=== PATIENT | male | born 1985 | race American Indian/Alaskan Native ===

== ENCOUNTER 2017-09-30 09:00 | Emergency (ER) | payer OTHER ==
[2017-09-30 09:14] VITALS: BP 118/73
[2017-09-30] MEDS ORDERED: ASPIRIN PO ONE (09:14)
[2017-09-30 09:39] LABS: Basophils % (Auto) 0.3 % (0.0-1.8); Eosinophils % (Auto) 0.3 % (0.0-4.3); Hematocrit 41.5 % (35.5-45.6); Hemoglobin 13.8 gm/dl (11.8-15.2); Lymphocytes # (Auto) 1.2 K/mm3 (1.2-5.4); Lymphocytes % (Auto) 34.8 % (13.4-35.0); Mean Corpuscular HGB Conc 33 % (32-34); Mean Corpuscular Hemoglobin 27 pg (28-32); Mean Corpuscular Volume 81 fl (84-94); Monocytes # (Auto) 0.4 K/mm3 (0.0-0.8); Monocytes % (Auto) 12.6 % (0.0-7.3); Platelet Count 145 K/mm3 (140-440); Red Blood Count 5.13 M/mm3 (3.65-5.03); Red Cell Distribution Width 12.8 % (13.2-15.2)
[2017-09-30 10:01] LABS: BUN/Creatinine Ratio 20; Blood Urea Nitrogen 12 mg/dL (9-20); Calcium 8.8 mg/dL (8.4-10.2); Hemolysis Index 15
--- NOTE | 2017-09-30 11:56 | Emergency Department Report ---
ED Chest Pain HPI - General Chief Complaint: Chest Pain Stated Complaint: CP/ABD PAIN Time Seen by Provider: 09/30/17 11:43 Source: patient Mode of arrival: Ambulatory Limitations: No Limitations - History of Present Illness Initial Comments: 32-year-old male with no significant past medical history presented to the hospital complaining of intermittent upper mid chest pain for the last 2 weeks. Pain is throbbing when it occurs. Pain-free at this time. No aggravating or alleviating factors. Denies shortness of breath, nausea, vomiting, diaphoresis , fever, calf tenderness, cough, or recent travel. As per triage patient wanted to be tested for STD but he denies that complaint currently during my examination. Patient complains of some mild intermittent mid abdominal pain that is currently present. He denies smoking/tobacco use or cocaine abuse. - Related Data Previous Rx's Medication Instructions Recorded Last Taken Type RX: Ibuprofen [Motrin 600 MG tab] 600 mg PO Q8H PRN #30 tablet 09/30/17 Unknown Rx Allergies Allergy/AdvReac Type Severity Reaction Status Date / Time No Known Allergies Allergy Verified 09/30/17 09:10 Heart Score - HEART Score History: Slightly suspicious EKG: Normal Age: < 45 Risk factors: No known risk factors Troponin: < normal limit HEART Score: 0 ED Review of Systems ROS: Stated complaint: CP/ABD PAIN Other details as noted in HPI Comment: All other systems reviewed and negative ED Past Medical Hx - Past Medical History Previous Medical History?: No - Surgical History Past Surgical History?: No - Social History Smoking Status: Never Smoker Substance Use Type: None - Medications Home Medications: Home Medications Medication Instructions Recorded Confirmed Last Taken Type RX: Ibuprofen [Motrin 600 MG tab] 600 mg PO Q8H PRN #30 tablet 09/30/17 Unknown Rx ED Physical Exam - General Limitations: No Limitations - Other Other exam information: General: No limitations, patient is alert in no acute distress Head exam: Atraumatic, normocephalic Eyes exam: Normal appearance ENT: Moist mucous membrane, normal oropharynx Neck exam: Normal inspection, full range of motion, no meningismus nontender Respiratory exam: Clear to auscultation bilateral, no wheezes, rales, crackles Cardiovascular: Normal rate and rhythm, mild upper sternal tenderness on palpation Abdomen: Soft, nondistended, and nontender, with normal bowel sounds, no rebound, or guarding Extremity: Full range of motion normal inspection no deformity, no calf tenderness or edema Back: Normal Inspection, full range of motion, no tenderness Neurologic: Alert, oriented x3, cranial nerves intact, no motor or sensory deficit Psychiatric: normal affect, normal mood Skin: Warm, dry, intact ED Course Vital Signs 09/30/17 09:11 Temperature 98.1 F Pulse Rate 78 Respiratory 18 Rate Blood Pressure 118/73 O2 Sat by Pulse 99 Oximetry DELVIS score - Delvis Score Age > 65: (0) No Aspirin use within the Past 7 Days: (0) No 3 or more CAD Risk Factors: (0) No 2 or more Angina events in past 24 hrs: (0) No Known CAD with more than 50% Stenosis: (0) No Elevated Cardiac Markers: (0) No ST Deviation Greater than 0.5mm: (0) No DELVIS Score: 0 ED Medical Decision Making - Lab Data Result diagrams: 09/30/17 09:26 09/30/17 09:26 Lab Results 09/30/17 09/30/17 Range/Units 09:26 09:26 WBC 3.3 L (4.5-11.0) K/mm3 RBC 5.13 H (3.65-5.03) M/mm3 Hgb 13.8 (11.8-15.2) gm/dl Hct 41.5 (35.5-45.6) % MCV 81 L (84-94) fl MCH 27 L (28-32) pg MCHC 33 (32-34) % RDW 12.8 L (13.2-15.2) % Plt Count 145 (140-440) K/mm3 Lymph % (Auto) 34.8 (13.4-35.0) % [place] % (Auto) 12.6 H (0.0-7.3) % Eos % (Auto) 0.3 (0.0-4.3) % Baso % (Auto) 0.3 (0.0-1.8) % Lymph # 1.2 (1.2-5.4) K/mm3 [place] # 0.4 (0.0-0.8) K/mm3 Eos # 0.0 (0.0-0.4) K/mm3 Baso # 0.0 (0.0-0.1) K/mm3 Seg Neutrophils % 52.0 (40.0-70.0) % Seg Neutrophils # 1.7 L (1.8-7.7) K/mm3 Sodium 141 (137-145) mmol/L Potassium 3.6 (3.6-5.0) mmol/L Chloride 100.1 (98-107) mmol/L Carbon Dioxide 28 (22-30) mmol/L Anion Gap 17 mmol/L BUN 12 (9-20) mg/dL Creatinine 0.6 L (0.8-1.5) mg/dL Estimated GFR > 60 ml/min BUN/Creatinine Ratio 20 % Glucose 93 (75-100) mg/dL Calcium 8.8 (8.4-10.2) mg/dL Troponin T < 0.010 (0.00-0.029) ng/mL - EKG Data -: EKG Interpreted by Me EKG shows normal: sinus rhythm, axis (160), QRS complexes (107), ST-T waves (no ST elevation UT) Rate: normal (80) - EKG Data When compared to previous EKG there are: previous EKG unavailable - Medical Decision Making Patient has reproducible anterior sternal chest pain without associated symptoms and no cardiac risk or PE factors. Will be treated symptomatically for pain with anti-inflammatory medications and to follow-up with PMD for further evaluation. Declined pain medications in the ED - Differential Diagnosis costochondritis, atypical chest pain, UT, PE, unstable angina, pleurisy Critical Care Time: No Critical care attestation.: If time is entered above; I have spent that time in minutes in the direct care of this critically ill patient, excluding procedure time. ED Disposition Clinical Impression: Costochondritis, acute Disposition: DC-01 TO HOME OR SELFCARE Is pt being admited?: No Does the pt Need Aspirin: No Condition: Stable Instructions: Costochondritis (ED) Additional Instructions: Take the medication as prescribed. Follow-up with the clinic provided. Return if symptoms worsen as indicated by the discharge instructions. Prescriptions: RX: Ibuprofen [Motrin 600 MG tab] 600 mg PO Q8H PRN #30 tablet PRN Reason: Pain Referrals: [facility] [Provider Group] - 3-5 Days Time of Disposition: 11:55
--- NOTE | 2017-09-30 14:47 | History and Physical Report ---
Medications and Allergies Allergies Allergy/AdvReac Type Severity Reaction Status Date / Time No Known Allergies Allergy Verified 09/30/17 09:10 Home Medications Medication Instructions Recorded Confirmed Last Taken Type Ibuprofen [Motrin 600 MG tab] 600 mg PO Q8H PRN #30 tablet 09/30/17 Unknown Rx Exam - Constitutional Vitals: Temp Pulse Resp BP Pulse Ox 98.1 F 52 L 14 118/73 98 09/30/17 09:11 09/30/17 12:16 09/30/17 12:16 09/30/17 09:11 09/30/17 12:16 Results - Labs CBC & Chem 7: 09/30/17 09:26 09/30/17 09:26 Labs: Abnormal lab results 09/30/17 09/30/17 Range/Units 09:26 09:26 WBC 3.3 L (4.5-11.0) K/mm3 RBC 5.13 H (3.65-5.03) M/mm3 MCV 81 L (84-94) fl MCH 27 L (28-32) pg RDW 12.8 L (13.2-15.2) % [place] % (Auto) 12.6 H (0.0-7.3) % Seg Neutrophils # 1.7 L (1.8-7.7) K/mm3 Creatinine 0.6 L (0.8-1.5) mg/dL
[2017-09-30] MEDS ORDERED: DIPRIVAN 10 MG/ML IV ONE (14:59)
[2017-09-30] MEDS ORDERED: DILAUDID ONE (15:01)
[2017-09-30] MEDS ORDERED: XYLOCAINE MPF 2% ONE (15:01)
[2017-09-30] MEDS ORDERED: ePHEDrine SULFATE ONE (15:53)
[2017-09-30] MEDS ORDERED: ZOFRAN ONE (16:26)
== END 2017-09-30 12:25 | disposition home or self-care (01) ==
LOC: ED 09:00
DX: M94.0 Chondrocostal junction syndrome [Tietze] (principal)
CPT/HCPCS: 36415; 80048; 84484; 85025; 93005; 93010; 99284; J1170; J2405; J2704

== ENCOUNTER 2021-04-04 17:58 | Emergency (ER) | payer OTHER ==
--- NOTE | 2021-04-04 18:35 | Emergency Department Report ---
ED General Adult HPI - General Chief complaint: Pain General Stated complaint: LT ARM PAIN Time Seen by Provider: 04/04/21 18:10 Source: patient Mode of arrival: Ambulatory Limitations: No Limitations - History of Present Illness Initial comments: This is a [age]-year-old male nontoxic, well nourished in appearance, no acute signs of distress presents to the ED with c/o of left shoulder and left ankle pain status post 1 week. 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 Patient also is requesting for penile ring removal. Patient stated symptoms of pain is intermittent worse with movement but currently denies any symptoms or pain. Otherwise denies any complaints or symptoms of penile condition. Patient denies any injuries or trauma. Patient denies any radiation of pain. Patient denies any numbness, tingling, fever, chills, nausea, vomiting, chest pain, shortness of breath, headache, stiff neck. Patient denies any joint swelling or joint redness. Patient denies decreased range of motion or abnormal gait.. Patient denies any allergies. -: week(s) Location: left, upper extremity, lower extremity Radiation: non-radiation Severity scale (0 -10): 0 Consistency: intermittent, now resolved Improves with: none Worsens with: none Associated Symptoms: denies other symptoms. denies: confusion, chest pain, cough, diaphoresis, fever/chills, headaches, loss of appetite, malaise, nausea/vomiting, rash, seizure, shortness of breath, syncope, weakness Treatments Prior to Arrival: none - Related Data Previous Rx's Medication Instructions Recorded Last Taken Type Ibuprofen [Motrin 600 MG tab] 600 mg PO Q8H PRN #30 tablet 09/30/17 Unknown Rx Ciprofloxacin HCl/Dexameth 4 drop OS BID 5 Days #7.5 ml 12/07/19 Unknown Rx [Ciprodex Otic Suspension] Ibuprofen [Motrin 800 MG tab] 800 mg PO Q8HR PRN #30 tablet 12/07/19 Unknown Rx Naproxen 500 mg PO Q12H PRN #12 tablet 04/04/21 Unknown Rx Allergies Allergy/AdvReac Type Severity Reaction Status Date / Time No Known Allergies Allergy Verified 04/04/21 18:01 ED Review of Systems ROS: Stated complaint: LT ARM PAIN Other details as noted in HPI Comment: All other systems reviewed and negative Constitutional: denies: chills, fever Eyes: denies: eye pain, eye discharge, vision change ENT: denies: ear pain, throat pain Respiratory: denies: cough, shortness of breath, wheezing Cardiovascular: denies: chest pain, palpitations Endocrine: no symptoms reported Gastrointestinal: denies: abdominal pain, nausea, diarrhea Genitourinary: denies: urgency, dysuria Musculoskeletal: denies: back pain, joint swelling, arthralgia Skin: denies: rash, lesions Neurological: denies: headache, weakness, paresthesias Psychiatric: denies: anxiety, depression Hematological/Lymphatic: denies: easy bleeding, easy bruising ED Past Medical Hx - Past Medical History Previous Medical History?: No - Surgical History Past Surgical History?: No - Social History Smoking Status: Never Smoker Substance Use Type: None - Medications Home Medications: Home Medications Medication Instructions Recorded Confirmed Last Taken Type Ibuprofen [Motrin 600 MG tab] 600 mg PO Q8H PRN #30 tablet 09/30/17 Unknown Rx Ciprofloxacin HCl/Dexameth 4 drop OS BID 5 Days #7.5 ml 12/07/19 Unknown Rx [Ciprodex Otic Suspension] Ibuprofen [Motrin 800 MG tab] 800 mg PO Q8HR PRN #30 tablet 12/07/19 Unknown Rx Naproxen 500 mg PO Q12H PRN #12 tablet 04/04/21 Unknown Rx ED Physical Exam - General Limitations: No Limitations General appearance: alert, in no apparent distress - Head Head exam: Present: atraumatic, normocephalic - Eye Eye exam: Present: normal appearance - ENT ENT exam: Present: normal exam - Neck Neck exam: Present: normal inspection, full ROM - Respiratory Respiratory exam: Absent: respiratory distress - Cardiovascular Cardiovascular Exam: Present: regular rate - Extremities Exam Extremities exam: Present: normal inspection, full ROM, normal capillary refill. Absent: tenderness, pedal edema, joint swelling, calf tenderness - Expanded Upper Extremity Exam Left General: Present: normal inspection Shoulder Exam: Present: normal inspection, full ROM. Absent: tenderness, swelling, abrasion, laceration, ecchymosis, deformity, crepidus, dislocation, erythema, tenderness over AC joint Upper Arm exam: Present: normal inspection, full ROM. Absent: tenderness, swelling Elbow exam: Present: normal inspection, full ROM. Absent: tenderness, swelling Forearm Wrist exam: Present: normal inspection, full ROM. Absent: tenderness, swelling Hand Wrist exam: Present: normal inspection, full ROM. Absent: tenderness, swelling Vascular: Present: normal capillary refill. Absent: vascular compromise (Neurovascular within normal limits) - Expanded Lower Extremity Exam Left Hip exam: Present: normal inspection, full ROM. Absent: tenderness, swelling Upper Leg exam: Present: normal inspection, full ROM. Absent: tenderness, swelling Knee exam: Present: normal inspection, full ROM. Absent: tenderness, swelling Lower Leg exam: Present: normal inspection, full ROM. Absent: tenderness, swelling Ankle exam: Present: normal inspection, full ROM. Absent: tenderness, swelling, abrasion, laceration, ecchymosis, deformity, crepidus, dislocation, erythema, anterior draw sign Foot/Toe exam: Present: normal inspection, full ROM. Absent: tenderness, swelling Neuro vascular tendon exam: Present: no vascular compromise Gait: Positive: observed and normal - Back Exam Back exam: Present: normal inspection, full ROM. Absent: tenderness, CVA tenderness (R), CVA tenderness (L), muscle spasm, paraspinal tenderness, vertebral tenderness, rash noted - Neurological Exam Neurological exam: Present: alert, oriented X3, normal gait - Psychiatric Psychiatric exam: Present: normal affect, normal mood - Skin Skin exam: Present: warm, dry, intact, normal color. Absent: rash ED Course Vital Signs 04/04/21 18:07 Temperature 99.4 F Pulse Rate 86 Respiratory 16 Rate Blood Pressure 131/77 O2 Sat by Pulse 99 Oximetry - Reevaluation(s) Reevaluation #1: 04/04/21 18:35 Patient is speaking in full sentences with no signs of distress noted. ED Medical Decision Making - Radiology Data [facility] [address] [place] [address] XRay Report Signed Patient: BRYCE BAILEY MR#: [id number] : 1985 Acct:[id number] Age/Sex: 35 / M ADM Date: 04/04/21 Loc: ED Attending Dr: Ordering Physician: NICOLE PATTERSON NP Date of Service: 04/04/21 Procedure(s): XR shoulder 2+V LT Accession Number(s): [id number] cc: NICOLE PATTERSON NP Fluoro Time In Minutes: XR shoulder 2+V LT INDICATION / CLINICAL INFORMATION: left shoulder pain. COMPARISON: None available. FINDINGS: No acute fracture. Normal alignment. Joint spaces are preserved. No destructive osseous lesion or suspicious periosteal reaction. Impression: 1.No acute fracture. Signer Name: Stephan Meyer MD Signed: 04/04/2021 7:00 PM Workstation Name: [id number] Transcribed By: YENNY Dictated By: Stephan Meyer MD Electronically Authenticated By: Stephan Meyer MD Signed Date/Time: 04/04/211899 DD/ 99 TD/TT: [facility] [address] [place] [address] XRay Report Signed Patient: BRYCE BAILEY MR#: [id number] : 1985 Acct:[id number] Age/Sex: 35 / M ADM Date: 04/04/21 Loc: ED Attending Dr: Ordering Physician: NICOLE PATTERSON NP Date of Service: 04/04/21 Procedure(s): XR ankle 3+V LT Accession Number(s): [id number] cc: NICOLE PATTERSON NP Fluoro Time In Minutes: XR ankle 3+V LT INDICATION / CLINICAL INFORMATION: left ankle pain. COMPARISON: None available. FINDINGS: No acute fracture. Normal alignment. Joint spaces are preserved. No destructive osseous lesion or suspicious periosteal reaction. Impression: 1.No significant osseous abnormality. Signer Name: Stephan Meyer MD Signed: 04/04/2021 7:01 PM Workstation Name: [id number] Transcribed By: YENNY Dictated By: Stephan Meyer MD Electronically Authenticated By: Stephan Meyer MD Signed Date/Time: 04/04/211900 DD/ 00 TD/TT: - Medical Decision Making This is a 35-year-old male that presents with left ankle and shoulder strain. Patient is stable and was examined by me. I referred patient to an orthopedic doctor for further evaluation for possible MRI. X-ray has been obtained and dictated by the radiologist. Patient is notified of the x-ray report with noted by the patient. Patient does have normal gait with no tenderness and no joint swelling. No ecchymosis. no joint redness or swelling. Not warm to touch. No signs of cellulites present. Patient was instructed to RICE therapy. Patient is discharged with Naproxen. At time of discharge, the patient does not seem toxic or ill in appearance. No acute signs of distress noted. Patient agrees to discharge treatment plan of care. No further questions noted by the patient. Critical care attestation.: If time is entered above; I have spent that time in minutes in the direct care of this critically ill patient, excluding procedure time. ED Disposition Clinical Impression: Left shoulder strain Qualifiers: Encounter type: initial encounter Qualified Code(s): S46.912A - Strain of unspecified muscle, fascia and tendon at shoulder and upper arm level, left arm, initial encounter Left ankle strain Qualifiers: Encounter type: initial encounter Qualified Code(s): S96.912A - Strain of unspecified muscle and tendon at ankle and foot level, left foot, initial encounter Disposition: 01 HOME / SELF CARE / HOMELESS Is pt being admited?: No Does the pt Need Aspirin: No Condition: Stable Instructions: RICE Therapy for Routine Care of Injuries, [id number] Additional Instructions: Follow-up with a orthopedic doctor in 3-5 days or if symptoms worsen and continue return to emergency room as soon as possible. No physical activity that extremity until cleared by orthopedic doctor Prescriptions: Naproxen 500 mg PO Q12H PRN #12 tablet PRN Reason: Pain , Severe (7-10) Referrals: PRIMARY CAREMD [Referring] - 3-5 Days FAM DE LEÓN MD [Staff Physician] - 3-5 Days Forms: Work/School Release Form(ED) Time of Disposition: 19:19
--- NOTE | 2021-04-04 19:05 | XRay Report ---
XR ankle 3+V LT INDICATION / CLINICAL INFORMATION: left ankle pain. COMPARISON: None available. FINDINGS: No acute fracture. Normal alignment. Joint spaces are preserved. No destructive osseous lesion or s uspicious periosteal reaction. Impression: 1.No significant osseous abnormality. Signer Name: Stephan Meyer MD Signed: 04/04/2021 7:01 PM Workstation Name: [id number]
--- NOTE | 2021-04-04 19:05 | XRay Report ---
XR shoulder 2+V LT INDICATION / CLINICAL INFORMATION: left shoulder pain. COMPARISON: None available. FINDINGS: No acute fracture. Normal alignment. Joint spaces are preserved. No destructive osseous lesion or s uspicious periosteal reaction. Impression: 1.No acute fracture. Signer Name: Stephan Meyer MD Signed: 04/04/2021 7:00 PM Workstation Name: [id number]
[2021-04-04 19:49] VITALS: BP 122/74
== END 2021-04-04 19:48 | disposition home or self-care (01) ==
LOC: ED 17:58
DX: S46.912A Strain of unspecified muscle, fascia and tendon at shoulder and upper arm level, left arm, initial encounter (principal); S96.912A Strain of unspecified muscle and tendon at ankle and foot level, left foot, initial encounter; X50.0XXA Overexertion from strenuous movement or load, initial encounter; Y93.89 Activity, other specified; Y92.511 Restaurant or cafe as the place of occurrence of the external cause; Y99.8 Other external cause status
CPT/HCPCS: 99283

== ENCOUNTER 2021-05-13 20:06 | Emergency (ER) | payer OTHER ==
[2021-05-13 21:45] LABS: Alanine Aminotransferase 10 units/L (7-56); Blood Urea Nitrogen 14 mg/dL (9-20); Calcium 8.7 mg/dL (8.4-10.2); Hemolysis Index 22
[2021-05-13 21:49] LABS: Hematocrit 44.5 % (35.5-45.6); Hemoglobin 14.2 gm/dl (11.8-15.2); Mean Corpuscular HGB Conc 32 % (32-34); Mean Corpuscular Volume 85 fl (84-94); Platelet Count 205 K/mm3 (140-440); Red Blood Count 5.25 M/mm3 (3.65-5.03); Red Cell Distribution Width 12.6 % (13.2-15.2)
[2021-05-13 21:52] LABS: BUN/Creatinine Ratio 23
--- NOTE | 2021-05-13 23:05 | Emergency Department Report ---
- General Chief Complaint: Fever Stated Complaint: CHILLS, HEAD COLD, THROWING UP Time Seen by Provider: 05/13/21 21:18 Source: patient Mode of arrival: Ambulatory Limitations: No Limitations - History of Present Illness Initial Comments: 35-year-old [place] male emergency department history presents emerge department complaining of a 3 to 4-day history of cough congestion coryza muscle aches chills and some weakness off and on which started after he gathered with family at thanks given asymmetrical when she and went home he states that when he woke up the following morning the symptoms have suddenly emerged and has continued to progress for the first 24 to 36 hours and has maintained of blood to be stable since that time. Symptoms are not improving so he seeks further treatment and evaluation emergency department. Reports no hemoptysis no hematemesis hematochezia, n no vomiting no chest pain MD Complaint: fever, cough, rhinorrhea, other -: Gradual, days(s) (3) Associated Symptoms: myalgias. denies: shortness of breath, rash, confusion, right sweats, weight loss, epistaxis, hoarseness - Related Data Previous Rx's Medication Instructions Recorded Last Taken Type Ibuprofen [Motrin 600 MG tab] 600 mg PO Q8H PRN #30 tablet 09/30/17 Unknown Rx Ciprofloxacin HCl/Dexameth 4 drop OS BID 5 Days #7.5 ml 12/07/19 Unknown Rx [Ciprodex Otic Suspension] Ibuprofen [Motrin 800 MG tab] 800 mg PO Q8HR PRN #30 tablet 12/07/19 Unknown Rx Naproxen 500 mg PO Q12H PRN #12 tablet 04/04/21 Unknown Rx Ketorolac [Toradol] 10 mg PO Q6H PRN #10 tablet 05/13/21 Unknown Rx Ondansetron [Zofran Odt] 4 mg PO Q8HR #20 tab.rapdis 05/13/21 Unknown Rx Allergies Allergy/AdvReac Type Severity Reaction Status Date / Time No Known Allergies Allergy Verified 04/04/21 18:01 ED Review of Systems ROS: Stated complaint: CHILLS, HEAD COLD, THROWING UP Other details as noted in HPI Comment: All other systems reviewed and negative ED Past Medical Hx - Social History Smoking Status: Never Smoker Substance Use Type: None - Medications Home Medications: Home Medications Medication Instructions Recorded Confirmed Last Taken Type Ibuprofen [Motrin 600 MG tab] 600 mg PO Q8H PRN #30 tablet 09/30/17 Unknown Rx Ciprofloxacin HCl/Dexameth 4 drop OS BID 5 Days #7.5 ml 12/07/19 Unknown Rx [Ciprodex Otic Suspension] Ibuprofen [Motrin 800 MG tab] 800 mg PO Q8HR PRN #30 tablet 12/07/19 Unknown Rx Naproxen 500 mg PO Q12H PRN #12 tablet 04/04/21 Unknown Rx Ketorolac [Toradol] 10 mg PO Q6H PRN #10 tablet 05/13/21 Unknown Rx Ondansetron [Zofran Odt] 4 mg PO Q8HR #20 tab.rapdis 05/13/21 Unknown Rx ED Physical Exam - General Limitations: No Limitations General appearance: alert, in no apparent distress - Head Head exam: Present: atraumatic, normocephalic - Eye Eye exam: Present: normal appearance - ENT ENT exam: Present: mucous membranes moist, other (Clear nasal drainage. Po sterior nasal drainage as well. Pharynx is clear airway patent) - Neck Neck exam: Present: normal inspection, full ROM - Respiratory Respiratory exam: Present: normal lung sounds bilaterally. Absent: respiratory distress, wheezes, rales, rhonchi, chest wall tenderness, accessory muscle use, decreased breath sounds - Cardiovascular Cardiovascular Exam: Present: regular rate, normal rhythm. Absent: systolic murmur, diastolic murmur, rubs, gallop - GI/Abdominal GI/Abdominal exam: Present: soft, normal bowel sounds - Rectal Rectal exam: Present: deferred - Extremities Exam Extremities exam: Present: normal inspection - Back Exam Back exam: Present: normal inspection - Neurological Exam Neurological exam: Present: alert, oriented X3 - Psychiatric Psychiatric exam: Present: normal affect, normal mood - Skin Skin exam: Present: warm, dry, intact, normal color. Absent: rash ED Course Vital Signs 05/13/21 20:46 Temperature 97.8 F Pulse Rate 69 Respiratory 18 Rate Blood Pressure 126/70 [Right] O2 Sat by Pulse 98 Oximetry ED Medical Decision Making - Lab Data Result diagrams: 05/13/21 21:12 05/13/21 21:12 - Medical Decision Making This 35-year-old patient presents with symptoms suspicious for likely viral upper respiratory tract infection. Differential includes bacterial pneumonia, sinusitis, allergic rhinitis, COVID-19, bronchitis, influenza. Do not suspect underlying Cardiopulmonary process. I considered but think unlikely dangerous cause of this patient symptoms to include acute coronary syndrome, CHF or COPD exacerbations, pneumonia, pneumothorax. Patient is nontoxic appearing and not in need of emergent medical intervention. Plan: Reassurance, reassessment, [id number] medications, discharge with PCP follow-up This patient presents with lower respiratory symptoms concerning for viral syndrome including flu. Patient does not meet criteria for COVID-19. Doubt pneumonia, sepsis or other serious bacterial infection or acute emergent condition. Is otherwise well- appearing with acceptable vitals and reassuring physical examination and is safe to be discharged home. Patient lacks serious medical comorbidities that would require admission. Patient is nontoxic and although symptomatic otherwise safe to go home. Will provide strict return precautions and instructions on self isolation/quarantine and anticipatory guidance. Critical care attestation.: If time is entered above; I have spent that time in minutes in the direct care of this critically ill patient, excluding procedure time. ED Disposition Clinical Impression: URI (upper respiratory infection) Disposition: 01 HOME / SELF CARE / HOMELESS Is pt being admited?: No Does the pt Need Aspirin: No Condition: Stable Instructions: Upper Respiratory Infection, Adult, Viral Respiratory Infection, Trub-Jt-Cesc Prescriptions: Ketorolac [Toradol] 10 mg PO Q6H PRN #10 tablet PRN Reason: Pain Ondansetron [Zofran Odt] 4 mg PO Q8HR #20 tab.rapdis Referrals: PRIMARY CARE, [Primary Care Provider] - 3-5 Days [facility] [Provider Group] - 3-5 Days
[2021-05-13 23:51] VITALS: BP 122/82
[2021-05-13 23:53] LABS: Total Cells Counted 100
[2021-05-13 23:54] LABS: Platelet Estimate Consistent w Auto; RBC Morphology Normal
== END 2021-05-13 23:53 | disposition home or self-care (01) ==
LOC: ED 20:06
DX: J06.9 Acute upper respiratory infection, unspecified (principal)
CPT/HCPCS: 36415; 80053; 83690; 85007; 85025; 99283

== ENCOUNTER 2021-06-07 07:58 | Emergency (ER) | payer OTHER ==
[2021-06-07] MEDS ORDERED: IBUPROFEN 800 MG TAB PO STA (11:04)
[2021-06-07 11:14] VITALS: BP 100/75
--- NOTE | 2021-06-07 11:21 | Emergency Department Report ---
ED General Adult HPI - General Chief complaint: Headache Stated complaint: HEADACHE, CHILLS Time Seen by Provider: 06/07/21 10:43 Source: patient Mode of arrival: Ambulatory Limitations: No Limitations - History of Present Illness Initial comments: 35-year-old -[place] male patient presents with complaints of sudden onset of body aches, chills, cough, and nasal congestion for 1 day. He denies any past medical history. He states he is vaccinated against COVID-19, however has not had recent COVID-19 testing performed. No loss of taste or smell, hemoptysis, chest pain, or shortness of breath per patient. He has not tried any OTC medications for his symptoms Severity scale (0 -10): 0 - Related Data Previous Rx's Medication Instructions Recorded Last Taken Type Ibuprofen [Motrin 600 MG tab] 600 mg PO Q8H PRN #30 tablet 09/30/17 Unknown Rx Ciprofloxacin HCl/Dexameth 4 drop OS BID 5 Days #7.5 ml 12/07/19 Unknown Rx [Ciprodex Otic Suspension] Ibuprofen [Motrin 800 MG tab] 800 mg PO Q8HR PRN #30 tablet 12/07/19 Unknown Rx Naproxen 500 mg PO Q12H PRN #12 tablet 04/04/21 Unknown Rx Ketorolac [Toradol] 10 mg PO Q6H PRN #10 tablet 05/13/21 Unknown Rx Ondansetron [Zofran Odt] 4 mg PO Q8HR #20 tab.rapdis 05/13/21 Unknown Rx Ibuprofen [Motrin 800 MG tab] 800 mg PO Q8HR PRN #20 tablet 06/07/21 Unknown Rx Loratadine 10 mg PO QDAY #10 tablet 06/07/21 Unknown Rx Allergies Allergy/AdvReac Type Severity Reaction Status Date / Time No Known Allergies Allergy Verified 06/07/21 08:01 ED Review of Systems ROS: Stated complaint: HEADACHE, CHILLS Other details as noted in HPI Constitutional: chills, malaise, weakness. denies: diaphoresis, fever ENT: denies: throat pain Respiratory: cough. denies: shortness of breath Cardiovascular: denies: chest pain Gastrointestinal: denies: abdominal pain, nausea, vomiting Neurological: headache ED Past Medical Hx - Past Medical History Previous Medical History?: No - Surgical History Past Surgical History?: No - Social History Smoking Status: Current Some Day Smoker Substance Use Type: None - Medications Home Medications: Home Medications Medication Instructions Recorded Confirmed Last Taken Type Ibuprofen [Motrin 600 MG tab] 600 mg PO Q8H PRN #30 tablet 09/30/17 06/07/21 Unknown Rx Ciprofloxacin HCl/Dexameth 4 drop OS BID 5 Days #7.5 ml 12/07/19 06/07/21 Unknown Rx [Ciprodex Otic Suspension] Ibuprofen [Motrin 800 MG tab] 800 mg PO Q8HR PRN #30 tablet 12/07/19 06/07/21 Unknown Rx Naproxen 500 mg PO Q12H PRN #12 tablet 04/04/21 06/07/21 Unknown Rx Ketorolac [Toradol] 10 mg PO Q6H PRN #10 tablet 05/13/21 06/07/21 Unknown Rx Ondansetron [Zofran Odt] 4 mg PO Q8HR #20 tab.rapdis 05/13/21 06/07/21 Unknown Rx Ibuprofen [Motrin 800 MG tab] 800 mg PO Q8HR PRN #20 tablet 06/07/21 Unknown Rx Loratadine 10 mg PO QDAY #10 tablet 06/07/21 Unknown Rx ED Physical Exam - General Limitations: No Limitations General appearance: alert, in no apparent distress - Head Head exam: Present: atraumatic, normocephalic - Eye Eye exam: Present: normal appearance. Absent: scleral icterus - ENT ENT exam: Absent: other (No sinus tenderness to palpation noted) - Neck Neck exam: Present: normal inspection, full ROM. Absent: tenderness, lymphadenopathy - Respiratory Respiratory exam: Present: normal lung sounds bilaterally. Absent: respiratory distress - Cardiovascular Cardiovascular Exam: Present: regular rate, normal rhythm. Absent: systolic murmur, diastolic murmur, rubs, gallop - Neurological Exam Neurological exam: Present: alert, oriented X3, normal gait - Psychiatric Psychiatric exam: Present: normal affect, normal mood - Skin Skin exam: Present: warm, dry, intact, normal color. Absent: rash ED Course Vital Signs 06/07/21 06/07/21 06/07/21 08:01 11:12 11:14 Temperature 98.6 F 99.6 F 99.6 F Pulse Rate 87 92 H 92 H Respiratory 16 18 18 Rate Blood Pressure 132/81 100/75 Blood Pressure 100/75 [Right] O2 Sat by Pulse 98 99 99 Oximetry ED Medical Decision Making - Lab Data Lab Results 06/07/21 Range/Units Unknown Influenza A (Rapid) Negative (Negative) Influenza B (Rapid) Negative (Negative) - Radiology Data Radiology results: report reviewed CHEST 2 VIEWS INDICATION / CLINICAL INFORMATION: cough. COMPARISON: Chest x-ray 06/03/2016 FINDINGS: SUPPORT DEVICES: None. HEART / MEDIASTINUM: Right-sided aortic arch again noted LUNGS / PLEURA: No significant pulmonary or pleural abnormality. No pneumothorax. ADDITIONAL FINDINGS: No significant additional findings. IMPRESSION: 1. 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 No acute abnormality. - Medical Decision Making 35-year-old -[place] male patient presents with complaints of sudden onset of body aches, chills, cough, and nasal congestion for 1 day. He denies any past medical history. He states he is vaccinated against COVID-19, however has not had recent COVID-19 testing performed. No loss of taste or smell, hemoptysis, chest pain, or shortness of breath per patient. He has not tried any OTC medications for his symptoms Physical exam is normal. No acute abnormalities are noted on chest x-ray. Rapid flu was negative. Patient advised to get COVID-19 testing within the next 24 to 48 hours and self quarantine until his results are back. Meds given for symptomatic treatment. His vitals are normal, he is nontoxic-appearing, he is stable for discharge home. Discussed in detail signs and symptoms that should prompt immediate return to the ED with patient who verbalizes understanding. Advise follow-up with PCP in 3 to 5 days Critical care attestation.: If time is entered above; I have spent that time in minutes in the direct care o f this critically ill patient, excluding procedure time. ED Disposition Clinical Impression: Viral syndrome, Suspected COVID-19 virus infection Disposition: HOME / SELF CARE / HOMELESS Is pt being admited?: No Condition: Stable Instructions: Viral Respiratory Infection, Prevent the Spread of COVID-19 if You Are Sick - [facility] Prescriptions: Loratadine 10 mg PO QDAY #10 tablet Ibuprofen [Motrin 800 MG tab] 800 mg PO Q8HR PRN #20 tablet PRN Reason: pain/fever Referrals: PRIMARY CARE, [Primary Care Provider] - 3-5 Days Forms: Work/School Release Form(ED)
--- NOTE | 2021-06-07 12:04 | XRay Report ---
CHEST 2 VIEWS INDICATION / CLINICAL INFORMATION: cough. COMPARISON: Chest x-ray 06/03/2016 FINDINGS: SUPPORT DEVICES: None. HEART / MEDIASTINUM: Right-sided aortic arch again noted LUNGS / PLEURA: No significant pulmonary or pleural abnormality. No pneumothorax. ADDITIONAL FINDINGS: No significant additional findings. IMPRESSION: 1. 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 No acute abnormality. Signer Name: Norberto Martell MD Signed: 06/07/2021 12:00 PM Workstation Name: [id number]
== END 2021-06-07 14:33 | disposition home or self-care (01) ==
LOC: ED 07:58
DX: B34.9 Viral infection, unspecified (principal); Z20.822 Contact with and (suspected) exposure to COVID-19; F17.200 Nicotine dependence, unspecified, uncomplicated
CPT/HCPCS: 71046; 87400; 99283